=== PATIENT | male | born 1995 | race African-American/Black ===

== ENCOUNTER 2022-06-08 02:27 | Emergency (ER) | payer MEDICAID ==
[~2022-06-08] VITALS: Ht 182.9 cm; Wt 77.0 kg
[2022-06-08 02:28] VITALS: BP 147/104
== END 2022-06-08 02:49 | disposition home or self-care (01) ==
LOC: ER 02:44
DX: F10.129 Alcohol abuse with intoxication, unspecified (principal); Y90.9 Presence of alcohol in blood, level not specified
CPT/HCPCS: 99283